=== PATIENT | female | born 1955 | race Caucasian/White ===

== ENCOUNTER 2016-09-11 10:31 | Inpatient (IN) | payer MEDICAID ==
[~2016-09-11] VITALS: Ht 165.1 cm; Wt 70.0 kg
[~2016-09-11 10:31] MED LIST: ACET325T14 PO; AMLO10TA2 PO; AMLO5TAB4 PO; APIX5TAB PO; ASPI-621 PO; ATOR40TA PO; CHOL500050 PO; CLON1TAB PO; CLOP75TA22 PO; GABA300C10 PO; HYDR12.53 PO; LOSA25TA5 PO; METO25TA91 PO; METO50TA82 PO; NICO1PAT10 TD; NITR0.4T SL; PANT40TA3 PO; POLY17PO5 PO; SULF1TAB24 PO; TICA90TA PO; TRAM50TA2 PO; WARF10TA PO; WARF10TA6 PO-COUM; WARF5TAB PO; WARF7.5T PO
[2016-09-11] MEDS ORDERED: SODIUM CHLORIDE 0.9% 1,000ML IVBOLUS ONE (11:00)
[2016-09-11] MEDS ORDERED: DIPH,PERTUSS(ACELL),TET VAC/PF 0.5 ML IM-VACC ONE ×2 (11:00→11:18)
[2016-09-11] MEDS ORDERED: LIDOCAINE 2%, 20ML SQ ONE (11:00)
[2016-09-11] MEDS ORDERED: SODIUM CHLORIDE 0.9% 1,000 ML IV ONE (11:00)
[2016-09-11] MEDS ORDERED: ONDANSETRON 2MG/ML, 2ML IVPush ONE (11:00)
[2016-09-11] MEDS ORDERED: L.E.T SOLUTION TP ONE ×2 (11:00→11:16)
[2016-09-11] MEDS ORDERED: ONDANSETRON 2MG/ML, 2ML ONE (11:14)
[2016-09-11] MEDS ORDERED: MORPHINE SULFATE 4 MG/ML, 1ML ONE ×2 (11:15→12:21)
[2016-09-11] MEDS ORDERED: LIDOCAINE 1%, 20ML ONE (11:15)
[2016-09-11] MEDS: MORPHINE SULFATE 4 MG/ML, 1ML IVPush PRN ×2 (11:21→12:29)
[2016-09-11 11:45] LABS: BLOOD UREA NITROGEN 27 mg/dL (7-18)
[2016-09-11 11:48] LABS: ASPARTATE AMINO TRANSFERASE 52 U/L (15-37)
[2016-09-11 11:54] LABS: IS PT STATUS REG ER OR PRE ER? YES
[2016-09-11 12:15] LABS: DIFF TOTAL CELLS COUNTED 100 CELL DIFF
[2016-09-11 12:20] LABS: VERIFY COUNTS? YES
[2016-09-11] MEDS ORDERED: AMLO10TA2 PO (13:35)
[2016-09-11] MEDS ORDERED: SODIUM CHLORIDE 0.9% 1,000 ML IV SCH (14:58)
[2016-09-11] MEDS ORDERED: NITROGLYCERIN 0.4 MG BOTTLE (25 TABS) SL PRN (15:00)
[2016-09-11] MEDS ORDERED: POLYETHYLENE GLYCOL 17 GM PACKET PO PRN (15:00)
[2016-09-11] MEDS ORDERED: ENOXAPARIN 30 MG/0.3 ML SQ SCH (15:00)
[2016-09-11] MEDS ORDERED: ONDANSETRON 2MG/ML, 2ML IVP PRN (15:00)
[2016-09-11] MEDS ORDERED: MORPHINE SULFATE 4 MG/ML, 1ML IVPush PRN (15:00)
[2016-09-11] MEDS ORDERED: DOCUSATE 100 MG CAPSULE PO PRN (15:00)
[2016-09-11 16:22] VITALS: BP 117/65
[2016-09-11] MEDS: HEPARIN 5,000 UNITS/ML, 1ML SQ SCH (18:35)
[2016-09-11] MEDS: NICOTINE 7 MG/24 HR PATCH.TD24 TD SCH (18:35)
[2016-09-11 18:45] VITALS: BP 125/86
[2016-09-11] MEDS: METOPROLOL TARTRATE 25 MG TABLET PO SCH (20:07)
[2016-09-11] MEDS: OXYcodone IR 5MG TABLET PO PRN (20:08)
[2016-09-11] MEDS ORDERED: ATORVASTATIN 40 MG TABLET PO SCH (21:00)
[2016-09-12 00:58] VITALS: BP 132/85
[2016-09-12] MEDS: OXYcodone IR 5MG TABLET PO PRN ×3 (01:19→11:29)
[2016-09-12] MEDS: HEPARIN 5,000 UNITS/ML, 1ML SQ SCH ×2 (01:31→09:14)
[2016-09-12 01:51] LABS: PATH.CAST-FLAG NOT PRESENT; SPERM-FLAG NOT PRESENT; SRC-FLAG NOT PRESENT; XTAL-FLAG NOT PRESENT; YLC-FLAG NOT PRESENT
[2016-09-12] MEDS ORDERED: CEFTRIAXONE PMX 2GM/50ML 50 ML IV SCH (03:00)
[2016-09-12 06:01] LABS: BLOOD UREA NITROGEN 37 mg/dL (7-18)
[2016-09-12 07:09] VITALS: BP 110/68
[2016-09-12] MEDS ORDERED: ASPIRIN 81 MG TABLET EC PO SCH (09:00)
[2016-09-12] MEDS ORDERED: LOSARTAN 25MG TABLET PO SCH (09:00)
[2016-09-12] MEDS ORDERED: NICOTINE 7 MG/24 HR PATCH.TD24 TD SCH (09:00)
[2016-09-12] MEDS ORDERED: CLOPIDOGREL 75 MG TABLET PO SCH (09:00)
[2016-09-12] MEDS ORDERED: AMLODIPINE 5 MG TABLET PO SCH (09:00)
[2016-09-12] MEDS: METOPROLOL TARTRATE 25 MG TABLET PO SCH (09:15)
[2016-09-12] MEDS: NICOTINE 7 MG/24 HR PATCH.TD24 TD SCH (09:15)
[2016-09-12] MEDS ORDERED: SERT100T PO (09:19)
[2016-09-12] MEDS ORDERED: SULF1TAB24 PO (13:45)
[2016-09-12] MEDS ORDERED: TRAM50TA2 PO (13:45)
[2016-09-12] MEDS ORDERED: METO25TA35 PO (13:51)
[2016-09-12 14:22] VITALS: BP 105/71
== END 2016-09-12 16:05 | disposition home or self-care (01) | DRG 74 ==
LOC: ED 12:42 → EDIP 12:48 → 5SO 14:01 → DCLOUNGE 09-12 15:35
PROVIDERS: ADMIT Family Medicine; ATTEND Family Medicine
PROC: 0HQ1XZZ Repair Face Skin, External Approach (ICD-10-PCS; principal; 2016-09-11)
DX: G90.8 Other disorders of autonomic nervous system (principal); N18.4 Chronic kidney disease, stage 4 (severe); I13.0 Hypertensive heart and chronic kidney disease with heart failure and stage 1 through stage 4 chronic kidney disease, or unspecified chronic kidney disease; I50.32 Chronic diastolic (congestive) heart failure; G61.0 Guillain-Barre syndrome; E86.0 Dehydration; S01.81XA Laceration without foreign body of other part of head, initial encounter; I25.10 Atherosclerotic heart disease of native coronary artery without angina pectoris; E78.5 Hyperlipidemia, unspecified; I34.1 Nonrheumatic mitral (valve) prolapse; G43.909 Migraine, unspecified, not intractable, without status migrainosus; G89.29 Other chronic pain; M54.2 Cervicalgia; I95.9 Hypotension, unspecified; Z79.82 Long term (current) use of aspirin; Z79.899 Other long term (current) drug therapy; Z87.891 Personal history of nicotine dependence; Z90.710 Acquired absence of both cervix and uterus; Z95.5 Presence of coronary angioplasty implant and graft; Z86.718 Personal history of other venous thrombosis and embolism
CPT/HCPCS: 36415; 70450; 71010; 72125; 80048; 80053; 81001; 82962; 83880; 84436; 84443; 84484; 85025; 85610; 87077; 87086; 90471; 90715; 93005; 96361; 96372; 96374; 96375; 96376; 99291; J0696; J1644; J2405; J7030

== ENCOUNTER 2017-07-08 10:23 | Inpatient (IN) | payer MEDICAID ==
[~2017-07-08] VITALS: Ht 165.1 cm; Wt 73.3 kg
[~2017-07-08 10:23] MED LIST changes: -CLOP75TA22 PO; +CLOP75TA52 PO; +METO25TA35 PO; +NICO-485 TD; -NICO1PAT10 TD; +SERT100T PO
[2017-07-08] MEDS ORDERED: OMEP20TA62 PO (11:01)
[2017-07-08] MEDS ORDERED: FAMO40TA61 PO (11:03)
[2017-07-08 11:13] LABS: BASOPHILS # (AUTO) 0.05 x10^3/uL (0-0.1); BASOPHILS % (AUTO) 1 % (0-1); EOSINOPHILS # (AUTO) 0.04 x10^3/uL (0-0.4); EOSINOPHILS % (AUTO) 0 % (1-7); LYMPHOCYTES # (AUTO) 2.59 x10^3/uL (1-3.4); LYMPHOCYTES % (AUTO) 28 % (22-44); MD NO; MEAN CORPUSCULAR HGB CONC 33.4 g/dL (32.4-35.8); MEAN PLATELET VOLUME 8.3 fL (7.4-10.4); MONOCYTES # (AUTO) 0.59 x10^3/uL (0.2-0.8); MONOCYTES % (AUTO) 6 % (2-9); NEUTROPHILS # (AUTO) 6.08 x10^3/uL (1.8-6.8); NEUTROPHILS % (AUTO) 65 % (42-75); PLATELET COUNT 406 x10^3/uL (130-400); RED BLOOD COUNT 4.39 x10^6/uL (3.82-5.3); RED CELL DISTRIBUTION WIDTH 14.8 % (9.6-15.2)
[2017-07-08 11:24] LABS: ALBUMIN 3.7 g/dL (3.4-5.0); ANION GAP 11 mmol/L (5-15); CHLORIDE 116 mmol/L (98-107)
[2017-07-08 11:32] LABS: ALANINE AMINOTRANSFERASE 20 U/L (12-78); ALKALINE PHOSPHATASE 125 U/L (45-117); BILIRUBIN,TOTAL 0.7 mg/dL (0.2-1.0); CREATININE 2.05 mg/dL (0.55-1.02); TROPONIN I < 0.015 ng/mL (0.000-0.045)
[2017-07-08] MEDS ORDERED: MORPHINE SULFATE 4 MG/ML, 1ML ONE ×3 (11:41→14:52)
[2017-07-08] MEDS ORDERED: ONDANSETRON 2MG/ML, 2ML ONE (11:42)
[2017-07-08] MEDS: MORPHINE SULFATE 4 MG/ML, 1ML IVPush PRN ×2 (11:47→12:02)
[2017-07-08] MEDS ORDERED: ONDANSETRON 2MG/ML, 2ML IVPush ONE (12:00)
[2017-07-08] MEDS ORDERED: SODIUM CHLORIDE FLUSH 10ML SYR IVF ONE (12:00)
[2017-07-08] MEDS ORDERED: LABETALOL 5MG/ML, 20ML ONE (14:40)
[2017-07-08] MEDS ORDERED: LABETALOL 5MG/ML, 20ML IVPush STA (14:40)
[2017-07-08] MEDS ORDERED: NITROGLYCERIN 0.4 MG BOTTLE (25 TABS) SL PRN (15:00)
[2017-07-08] MEDS ORDERED: ACETAMINOPHEN 325 MG TABLET PO PRN (15:00)
[2017-07-08] MEDS ORDERED: morphine SULFATE 10 MG/ML, 1ML IVPush ONE (15:00)
[2017-07-08] MEDS: ONDANSETRON 2MG/ML, 2ML IVPush PRN (15:05)
[2017-07-08] MEDS: LORazepam 2 MG/ML, 1ML IVPush PRN ×2 (15:21→22:17)
[2017-07-08] MEDS ORDERED: hydrALAzine 20 MG/ML, 1ML IV PRN (16:00)
[2017-07-08] MEDS ORDERED: LABETALOL 5MG/ML, 20ML IVPush PRN (16:00)
[2017-07-08] MEDS: LACTATED RINGERS 1,000 ML IV SCH (17:19)
[2017-07-08] MEDS: PROMETHAZINE 25 MG/ML, 1ML IM PRN (17:19)
[2017-07-08 17:27] LABS: TROPONIN I < 0.015 ng/mL (0.000-0.045)
[2017-07-08] MEDS ORDERED: KETOROLAC 30 MG/1 ML IVPush ONE (18:00)
[2017-07-08] MEDS ORDERED: MAGNESIUM SULFATE PMX 2GM/50ML 50 ML IV ONE (18:00)
[2017-07-08] MEDS ORDERED: methylPREDNISolone SOD SUCC 125 MG/2 ML IVPush ONE (18:00)
[2017-07-08] MEDS ORDERED: FAMOTIDINE 20 MG/2 ML IVPush ONE (18:30)
[2017-07-08] MEDS ORDERED: HYDROmorphone 2 MG/ML, 1ML ONE (18:43)
[2017-07-08] MEDS: HYDROmorphone 1 MG/ML, 1ML IV PRN (19:05)
[2017-07-08 20:23] VITALS: BP 106/67
[2017-07-08] MEDS: ATORVASTATIN 40 MG TABLET PO SCH (21:28)
[2017-07-08] MEDS: METOPROLOL TARTRATE 25 MG TABLET PO SCH (21:28)
[2017-07-09] MEDS ORDERED: HYDROmorphone 2 MG/ML, 1ML ONE ×2 (00:12→10:40)
[2017-07-09 00:16] LABS: TROPONIN I < 0.015 ng/mL (0.000-0.045)
[2017-07-09 01:11] VITALS: BP 116/77
[2017-07-09 05:40] LABS: ALANINE AMINOTRANSFERASE 18 U/L (12-78); ALBUMIN 3.3 g/dL (3.4-5.0); ANION GAP 11 mmol/L (5-15); CALCIUM 8.5 mg/dL (8.5-10.1); CHLORIDE 113 mmol/L (98-107)
[2017-07-09 05:43] LABS: ALKALINE PHOSPHATASE 110 U/L (45-117); BILIRUBIN,TOTAL 0.4 mg/dL (0.2-1.0); CREATININE 2.12 mg/dL (0.55-1.02); TOTAL PROTEIN 7.3 g/dL (6.4-8.2)
[2017-07-09] MEDS: HYDROmorphone 1 MG/ML, 1ML IV PRN (06:25)
[2017-07-09 08:55] VITALS: BP 145/84
[2017-07-09] MEDS ORDERED: SERTRALINE 100MG TABLET PO SCH (09:00)
[2017-07-09] MEDS ORDERED: FAMOTIDINE 20 MG TABLET ONE (09:26)
[2017-07-09] MEDS: KETOROLAC 30 MG/1 ML IVPush SCH ×3 (09:39→19:56)
[2017-07-09] MEDS: HEPARIN 5,000 UNITS/ML, 1ML SQ SCH ×2 (09:42→19:59)
[2017-07-09] MEDS: OMEPRAZOLE 20 MG CAPSULE.DR PO SCH (09:43)
[2017-07-09] MEDS: METOPROLOL TARTRATE 25 MG TABLET PO SCH ×2 (09:43→20:00)
[2017-07-09] MEDS: ASPIRIN 81 MG TABLET EC PO SCH (09:43)
[2017-07-09] MEDS: LACTATED RINGERS 1,000 ML IV SCH (09:43)
[2017-07-09] MEDS: LOSARTAN 25MG TABLET PO SCH (09:43)
[2017-07-09] MEDS: FAMOTIDINE 40 MG TABLET PO SCH (09:44)
[2017-07-09] MEDS: CLOPIDOGREL 75 MG TABLET PO SCH (09:44)
[2017-07-09] MEDS: LORazepam 2 MG/ML, 1ML IVPush PRN (09:51)
[2017-07-09] MEDS: HYDROmorphone 2 MG/ML, 1ML IV PRN ×3 (10:45→19:57)
[2017-07-09 14:22] VITALS: BP 131/74
[2017-07-09 15:34] VITALS: BP 136/85
[2017-07-09] MEDS: ONDANSETRON 2MG/ML, 2ML IVPush PRN (15:58)
[2017-07-09] MEDS: PROMETHAZINE 25 MG/ML, 1ML IM PRN (19:55)
[2017-07-09] MEDS: ATORVASTATIN 40 MG TABLET PO SCH (20:00)
[2017-07-09 21:35] VITALS: BP 121/81
[2017-07-10] MEDS: ONDANSETRON 2MG/ML, 2ML IVPush PRN (00:06)
[2017-07-10] MEDS: HYDROmorphone 2 MG/ML, 1ML IV PRN ×2 (00:06→06:07)
[2017-07-10] MEDS: LACTATED RINGERS 1,000 ML IV SCH (00:09)
[2017-07-10] MEDS: LORazepam 2 MG/ML, 1ML IVPush PRN ×2 (00:17→20:23)
[2017-07-10 01:29] VITALS: BP 132/88
[2017-07-10] MEDS: KETOROLAC 30 MG/1 ML IVPush SCH ×5 (02:00→20:24)
[2017-07-10 07:01] VITALS: BP 132/77
[2017-07-10 07:54] LABS: ANION GAP 8 mmol/L (5-15); CALCIUM 8.3 mg/dL (8.5-10.1); CHLORIDE 110 mmol/L (98-107); CREATININE 2.13 mg/dL (0.55-1.02)
[2017-07-10] MEDS ORDERED: HYDROmorphone 2 MG/ML, 1ML IV PRN (08:30)
[2017-07-10] MEDS: FAMOTIDINE 40 MG TABLET PO SCH (09:56)
[2017-07-10] MEDS: ASPIRIN 81 MG TABLET EC PO SCH (09:56)
[2017-07-10] MEDS: OMEPRAZOLE 20 MG CAPSULE.DR PO SCH (09:56)
[2017-07-10] MEDS: LOSARTAN 25MG TABLET PO SCH (09:56)
[2017-07-10] MEDS: METOPROLOL TARTRATE 25 MG TABLET PO SCH ×2 (09:57→20:25)
[2017-07-10] MEDS: CLOPIDOGREL 75 MG TABLET PO SCH (09:57)
[2017-07-10] MEDS: HEPARIN 5,000 UNITS/ML, 1ML SQ SCH ×2 (09:58→20:00)
[2017-07-10] MEDS: ACETAMINOPHEN 500 MG TABLET PO SCH ×3 (10:58→20:24)
[2017-07-10 14:12] VITALS: BP 112/70
[2017-07-10 19:31] VITALS: BP 145/91
[2017-07-10] MEDS: ATORVASTATIN 40 MG TABLET PO SCH (20:24)
[2017-07-11 01:45] VITALS: BP 152/89
[2017-07-11] MEDS: ACETAMINOPHEN 500 MG TABLET PO SCH ×2 (03:29→08:59)
[2017-07-11] MEDS: KETOROLAC 30 MG/1 ML IVPush SCH (03:30)
[2017-07-11] MEDS ORDERED: IBUP-1223 PO (08:25)
[2017-07-11] MEDS ORDERED: ACET-1757 PO (08:25)
[2017-07-11] MEDS ORDERED: ACET500T71 PO (08:25)
[2017-07-11] MEDS ORDERED: TRAM50TA2 PO (08:25)
[2017-07-11 08:48] VITALS: BP 159/94
[2017-07-11] MEDS: ASPIRIN 81 MG TABLET EC PO SCH (08:50)
[2017-07-11] MEDS: LOSARTAN 25MG TABLET PO SCH (08:50)
[2017-07-11] MEDS: METOPROLOL TARTRATE 25 MG TABLET PO SCH (08:51)
[2017-07-11] MEDS: HEPARIN 5,000 UNITS/ML, 1ML SQ SCH (08:51)
[2017-07-11] MEDS: CLOPIDOGREL 75 MG TABLET PO SCH (08:52)
[2017-07-11] MEDS: LORazepam 2 MG/ML, 1ML IVPush PRN (08:59)
[2017-07-11] MEDS: OMEPRAZOLE 20 MG CAPSULE.DR PO SCH (08:59)
[2017-07-11] MEDS ORDERED: FAMOTIDINE 20 MG TABLET PO SCH (09:00)
== END 2017-07-11 11:57 | disposition home or self-care (01) | DRG 439 ==
LOC: ED 10:47 → EDIP 12:43 → 5SO 14:00 → 3NW 07-09 15:28
PROVIDERS: ADMIT Internal Medicine; ATTEND Internal Medicine
DX: K85.00 Idiopathic acute pancreatitis without necrosis or infection (principal); I13.0 Hypertensive heart and chronic kidney disease with heart failure and stage 1 through stage 4 chronic kidney disease, or unspecified chronic kidney disease; G61.0 Guillain-Barre syndrome; I50.9 Heart failure, unspecified; I72.3 Aneurysm of iliac artery; N18.4 Chronic kidney disease, stage 4 (severe); I71.4 Abdominal aortic aneurysm, without rupture; Z86.718 Personal history of other venous thrombosis and embolism; Z95.5 Presence of coronary angioplasty implant and graft; Z90.710 Acquired absence of both cervix and uterus; E78.5 Hyperlipidemia, unspecified; E78.00 Pure hypercholesterolemia, unspecified; G43.909 Migraine, unspecified, not intractable, without status migrainosus; G89.29 Other chronic pain; M54.2 Cervicalgia; I25.10 Atherosclerotic heart disease of native coronary artery without angina pectoris; I34.1 Nonrheumatic mitral (valve) prolapse; Z87.891 Personal history of nicotine dependence; I16.0 Hypertensive urgency
CPT/HCPCS: 36415; 71045; 76700; 80048; 80053; 82150; 83690; 83735; 83880; 84484; 85025; 85379; 93005; 96374; 96375; J1170; J1885; J2405; J2550; J0360; J2060; J2270; J2930; J3475; J7120; S0028